=== PATIENT | female | born 1980 | race American Indian/Alaskan Native ===

== ENCOUNTER → 2021-07-14 11:09 | Outpatient (BNVA) | payer OTHER, SELFPAY | PROVIDERS: Visit Provider Family Medicine | DX: E66.01 Morbid (severe) obesity due to excess calories (principal); F31.9 Bipolar disorder, unspecified; I25.10 Atherosclerotic heart disease of native coronary artery without angina pectoris; Z68.41 Body mass index [BMI] 40.0-44.9, adult; N92.0 Excessive and frequent menstruation with regular cycle; L65.9 Nonscarring hair loss, unspecified; Z76.89 Persons encountering health services in other specified circumstances | CPT/HCPCS: 80053; 80061; 84443; 84481; 85025 ==

== ENCOUNTER → 2021-10-12 08:35 | Outpatient (BNVA) | payer OTHER, SELFPAY | PROVIDERS: PCP Family Medicine; Visit Provider Family Medicine | DX: N92.0 Excessive and frequent menstruation with regular cycle (principal); G47.61 Periodic limb movement disorder; F31.9 Bipolar disorder, unspecified; Z12.31 Encounter for screening mammogram for malignant neoplasm of breast; F41.8 Other specified anxiety disorders; Z12.4 Encounter for screening for malignant neoplasm of cervix | CPT/HCPCS: 87624 ==

== ENCOUNTER 2021-12-08 15:36 | Outpatient (CLI) | payer OTHER, SELFPAY ==
--- NOTE | 2021-12-08 15:47 | XR_ITS ---
WS: [id number] Exam: XR lumbar spine 2-3V* [id number] Date/Time of Exam: 12/08/2021 3:48 PM Reason For Exam: Low back and Left hip pain No acute fracture or dislocation. Degenerative disc changes at L1-2 and L2-3 with mild spondylosis. T here is levoscoliosis of the lower thoracic and upper lumbar spine. Posterior elements are otherwise intact. XR/XR lumbar spine 2-3V* [id number] IMPRESSION: 1. No fracture or dislocation. 2. Thoracolumbar levoscoliosis. Degenerative changes as above.
--- NOTE | 2021-12-08 15:47 | XR_ITS ---
WS: [id number] Exam: XR hip RT 2-3V wo/w pel* [id number] Date/Time of Exam: 12/08/2021 3:48 PM Reason For Exam: Right hip pain, H/O OA R hip No fracture or dislocation. The joint compartments well maintained. Normal soft tissues. XR/XR hip RT 2-3V wo/w pel* [id number] IMPRESSION: 1. Negative right hip.
== END 2021-12-08 15:37 | disposition home or self-care (01) ==
PROVIDERS: PCP Family Medicine; Visit Provider Family Medicine
DX: M25.551 Pain in right hip (principal); M41.85 Other forms of scoliosis, thoracolumbar region; M54.16 Radiculopathy, lumbar region
CPT/HCPCS: 72100; 73502

== ENCOUNTER → 2022-12-18 16:28 | Outpatient (BNVA) | payer OTHER, SELFPAY | PROVIDERS: PCP Family Medicine; Visit Provider Family Medicine | DX: E11.9 Type 2 diabetes mellitus without complications (principal); E66.01 Morbid (severe) obesity due to excess calories; I25.10 Atherosclerotic heart disease of native coronary artery without angina pectoris; N92.0 Excessive and frequent menstruation with regular cycle; Z68.41 Body mass index [BMI] 40.0-44.9, adult | CPT/HCPCS: 80053; 80061; 83036; 84439; 84443; 85025 ==

== ENCOUNTER → 2023-04-22 13:47 | Outpatient (BNVA) | payer OTHER, SELFPAY | PROVIDERS: PCP Family Medicine; Visit Provider Family Medicine | DX: R53.83 Other fatigue (principal); G25.81 Restless legs syndrome; E11.9 Type 2 diabetes mellitus without complications; D22.9 Melanocytic nevi, unspecified; R23.3 Spontaneous ecchymoses; Z86.69 Personal history of other diseases of the nervous system and sense organs; R06.81 Apnea, not elsewhere classified; F31.9 Bipolar disorder, unspecified; F41.8 Other specified anxiety disorders; D64.9 Anemia, unspecified | CPT/HCPCS: 80053; 82306; 82607; 82728; 83036 ==

== ENCOUNTER 2023-05-17 08:33 | Outpatient (CLI) | payer OTHER, SELFPAY ==
--- NOTE | 2023-05-17 08:43 | MM_ITS ---
WS: [id number] BILATERAL SCREENING DIGITAL TOMOSYNTHESIS MAMMOGRAM WITH CAD HISTORY: SCREENING COMPARISON: None available. Bilateral CC and MLO views with tomosynthesis and synthetic mammography submitted. Computer aided det ection analyzed. Breast composition: There are scattered areas of fibroglandular density. No suspicious masses, microc alcifications or architectural distortion. IMPRESSION: MM/[place] [id number] BI-RADS: 1-Negative FOLLOW UP: 1 Year Follow-up
== END 2023-05-17 08:34 | disposition home or self-care (01) ==
PROVIDERS: PCP Family Medicine; Visit Provider Family Medicine
DX: Z12.31 Encounter for screening mammogram for malignant neoplasm of breast (principal)
CPT/HCPCS: 77063; 77067; 80053; 82306; 82607; 82728; 83036

== ENCOUNTER → 2023-06-12 07:43 | Outpatient (BNVA) | payer OTHER, SELFPAY | PROVIDERS: PCP Family Medicine; Visit Provider Family Medicine | DX: N93.8 Other specified abnormal uterine and vaginal bleeding (principal); N81.6 Rectocele; R39.9 Unspecified symptoms and signs involving the genitourinary system; G25.81 Restless legs syndrome | CPT/HCPCS: 81000 ==

== ENCOUNTER 2023-07-04 12:34 | Outpatient (CLI) | payer OTHER, SELFPAY ==
--- NOTE | 2023-07-04 12:45 | US_ITS ---
WS: [id number] US pelv w/transvag [id number] HISTORY: prolonged periods, concern for fibroid COMPARISON: None available. Uterus: 11.8 cm x 7.0 cm x 5.5 cm. Mildly enlarged uterus. Hyperechoic area along the anterior myomet rium measures 2.3 x 1.6 x 1.8 cm. There is an additional hypoechoic area along the posterior endometr ium measuring 1.2 x 1.3 x 0.9 cm. Endometrium: 1.3 cm. Normal size. Right ovary: 4.7 cm x 4.5 cm x 5.4 cm. RIGHT ovary is enlarged. Ovary is slightly and diffusely hypoe choic. There is normal vascularity. There is a small amount of adjacent free fluid. Left ovary: 2.2 cm x 2.6 cm x 1.3 cm. Normal size and vascularity, no cystic or solid masses. Small amount of free fluid in the RIGHT adnexa. IMPRESSION: 1. Normal endometrium. 2. Hyperechoic area in the anterior myometrium and a very small hypoechoic area along the posterior m yometrium. These may be fibroids. The hyperechoic area may be an area of adenomyosis. 3. RIGHT ovary is very slightly enlarged. Due to the ovarian enlargement consider follow-up transvagi nal pelvic ultrasound in 3 to 4 months.
== END 2023-07-04 12:35 | disposition home or self-care (01) ==
PROVIDERS: PCP Family Medicine; Visit Provider Family Medicine
DX: N93.8 Other specified abnormal uterine and vaginal bleeding (principal)
CPT/HCPCS: 76830; 76856

== ENCOUNTER 2023-07-10 21:44 | Emergency (ER) | payer OTHER, SELFPAY ==
[2023-07-10 21:47] VITALS: BP 161/95; PULSE 88; RESP 16; TEMP 36.6; O2SAT 96; BMI 48.6
[2023-07-10 22:16] LABS: Basophils % 0.3 %; Eosinophils # 0.2 10^3/uL (0.0-0.8); Hematocrit 40.5 % (36-47); Lymphocytes # 3.5 10^3/uL (0.8-4.8); Lymphocytes % 36.3 %; Mean Corpuscular HGB Conc 32.8 g/dL (30-55); Mean Corpuscular Hemoglobin 30.1 pg (27-33); Mean Corpuscular Volume 91.6 fl (85-98); Mean Platelet Volume 8.7 fL (7.4-10.4); Monocytes # 0.5 10^3/uL (0.2-0.9); Monocytes % 5.4 %; Neutrophils # 5.35 10^3/uL (1.8-7.7); Neutrophils % 55.9 %; Nucleated Red Blood Cells % 0 %; Platelet Count 292 10^3/cmm (157-399); Red Blood Count 4.42 10^6/uL (3.85-5.65); Red Cell Distribution Width 12.8 % (12.1-15.1); White Blood Count 9.58 10^3/uL (3.29-11.43)
[2023-07-10 22:37] LABS: Alanine Aminotransferase 19 U/L (0-33); Albumin Level 4.1 g/dL (3.5-5.2); Alkaline Phosphatase 78 U/L (35-105); Anion Gap 12.1 (5-19); Aspartate Amino Transferase 16 U/L (0-32); Blood Urea Nitrogen 11 mg/dL (6-20); Calcium 9.4 mg/dL (8.5-10.5); Carbon Dioxide 28 mmol/L (22-29); Chloride 103 mmol/L (98-107); Globulin 2.7 g/dL (1.3-4.6); Glomerular Filtration Rate 109.1 mL/min (90-130); Glucose 174 mg/dL (65-115); Osmolality Calculated 292 mOsm/kg (285-295); Potassium 4.1 mmol/L (3.5-5.1); Sodium 139 mmol/L (136-145); Total Bilirubin 0.2 mg/dL (0.15-1.2); Total Protein 6.8 g/dL (6.6-8.7)
--- NOTE | 2023-07-10 23:14 | PC.NURSE ---
pt placed in gown
[2023-07-10 23:15] VITALS: BP 129/78; PULSE 70; RESP 19; O2SAT 97
--- NOTE | 2023-07-11 00:56 | W.ED.ABDPA2 ---
HPI - Abdominal Pain General: Chief Complaint: Abdominal Pain Stated Complaint: abdomen pain, nausea, vaginal bleeding Time Seen by Provider: 07/10/23 22:54 Source: patient Mode of arrival: ambulatory Limitations: no limitations History of Present Illness: Patient presents to the emergency department today accompanied by her for evaluation treatment of continued dysfunctional uterine bleeding. Patient has been dealing with this off and on for some time and her primary care doctor evaluated her approximately 1 week ago for similar. Patient received an ultrasound with positive findings of fibroid and, patient has complaints concerning a rectocele. Patient has a referral to [facility] in [place] with Dr. Hahn but is not until September. Patient reports that last night she noticed an increase in her vaginal bleeding. She is having severe abdominal cramps. She states she has been taking Midol and ibuprofen for her symptoms. Patient has felt a little dizzy but has not had any syncope, chest pains, or shortness of breath. Review of Systems General: Reports: 10 or more systems reviewed and unremarkable except in HPI and below PFSH ED PFSH: Medical History Degenerative joint disease (DJD) of lumbar spine History of obstructive sleep apnea Morbid obesity with BMI of 40.0-44.9, adult Restless leg Type 2 diabetes mellitus without complications Surgical History History of appendectomy Family History Grandfather CAD (coronary artery disease) Grandmother Diabetes Social History Smoking and tobacco/nicotine status: never used tobacco/nicotine Alcohol intake: current Alcohol intake frequency: holidays/special occasions only Substance/Drug Use: never Household members: spouse Marital status: Number of children: 1 Number of grandchildren: 0 Current occupational status: employed Current occupation: [employer] Special candido needs: No Agree to transfusion: Yes Physical Exam Const: COMMON NORMALS: no acute distress, patient oriented x3 and alert HENMT: COMMON NORMALS: normocephalic, atraumatic, hearing grossly normal bilaterally and moist oral mucous membranes HEAD & SCALP: normocephalic and atraumatic Eye: COMMON NORMALS: Equal, round and reactive pupils present, EOMs intact bilaterally and conjunctivae normal CONJUNCTIVA: Yes conjunctivae normal PUPIL: Yes Equal, round and reactive pupils present Neck/C-Spine: COMMON NORMALS: full ROM and no JVD Lymph: LYMPHATIC: no lymphadenopathy noted Resp: COMMON NORMALS: normal respiratory effort, No retractions, No use of accessory muscles and clear to auscultation bilaterally AUSCULTATION: clear to auscultation bilaterally Cardio: COMMON NORMALS: no JVD, regular rate and regular rhythm RATE: regular rate RHYTHM: regular rhythm GI: OTHER: Abdomen is soft. Normoactive bowel sounds. : COMMON NORMALS: Yes no CVA tenderness BLADDER/KIDNEY EXAM: Yes no CVA tenderness Back/Pelvis: COMMON NORMALS: no CVA tenderness, no thoracic nor lumbar tenderness and thoraco-lumbar ROM normal Extremity: COMMON NORMALS: normal to inspection, full ROM and capillary refill normal Neuro: COMMON NORMALS: patient oriented x3 SENSORIUM/ORIENTATION: Yes alert Psych: COMMON NORMALS: mental status grossly normal, Normal thought process present, cooperative, normal affect and activity/motor behavior normal THOUGHT PROCESS: Normal thought process present Skin: COMMON NORMALS: no rashes or lesions noted and no wounds GENERAL SKIN EXAM: no rashes or lesions noted Course Vital Signs: Vital signs: Vital Signs Temperature 97.9 F 07/10/23 21:47 Pulse Rate 70 07/10/23 23:15 Respiratory Rate 19 H 07/10/23 23:15 Blood Pressure 129/78 07/10/23 23:15 Pulse Oximetry 97 07/10/23 23:15 Oxygen Delivery Me thod Room Air 07/10/23 23:15 MDM - Abdominal Pain Medical Decision Making Lab work shows no signs of an elevated white blood cell count at this time. Patient's hemoglobin and hematocrit are both stable. We originally discussed having a repeat ultrasound done given the patient's complaint of acute worsening of bleeding last night. However, after getting the patient's lab work back, explained to her that she does not show any signs of anemia from blood loss and, as she just had an ultrasound about 5 days ago, would expect the same findings of fibroids. Patient agreed and wished to forego the repeat ultrasound today. We discussed treatment for her acute worsening of vaginal bleeding however, patient does not want to take any hormones at this time as she is concerned about their effect on her mood. Again, given that the patient has stable hemoglobin, I was willing to allow her to continue monitoring at home for the next day or 2 with strict return precautions for any worsening dizziness, new onset syncope, chest pain, or shortness of breath. Explained that if these were to occur we would need to discuss possible hormone intervention to stop her vaginal bleeding should it not spontaneously resolve on its own very soon. Patient was provided medication to help with her menstrual cramping. Patient was also encouraged to reach out to Dr. Hahn's office tomorrow to be placed on a first available list for any cancellations to see if she can have her appointment moved up. Patient verbalized understanding and agreement to treatment plan. Differential Diagnosis Likely abdominal pain; Unlikely acute appendicitis, diverticulitis, gastroenteritis, pancreatitis or small bowel obstruction Lab Data 07/10/23 22:11 07/10/23 22:11 Labs/Radiology: Laboratory Results WBC 9.58 10^3/uL (3.29-11.43) 07/10/23: RBC 4.42 10^6/uL (3.85-5.65) 07/10/23 22:11 Hgb 13.30 g/dL (11.27-16.99) 07/10/23 22:11 Hct 40.5 % (36-47) 07/10/23 22:11 MCV 91.6 fl (85-98) 07/10/23 22:11 MCH 30.1 pg (27-33) 07/10/23 22:11 MCHC 32.8 g/dL (30-55) 07/10/23 22:11 RDW 12.8 % (12.1-15.1) 07/10/23 22:11 Plt Count 292 10^3/cmm (157-399) 07/10/23 22:11 MPV 8.7 fL (7.4-10.4) 07/10/23 22:11 Neut % (Auto) 55.9 % 07/10/23: Lymph % (Auto) 36.3 % 07/10/23 22:11 [place] % (Auto) 5.4 % 07/10/23 22: Eos % (Auto) 2.0 % 07/10/23: Baso % (Auto) 0.3 % 10/25/23 22:11 Neut # (Auto) 5.35 10^3/uL (1.8-7.7) 07/10/23 22:11 Lymph # (Auto) 3.5 10^3/uL (0.8-4.8) 07/10/23 22:11 [place] # (Auto) 0.5 10^3/uL (0.2-0.9) 07/10/23 22:11 Eos # (Auto) 0.2 10^3/uL (0.0-0.8) 07/10/23 22:11 Baso # (Auto) 0.0 10^3/uL (0.0-0.1) 07/10/23 22:11 Nucleated RBC % (auto) 0 % 07/10/23 22:11 Nucleated RBCs # 0.0 /100WBC 07/10/23 22:11 Sodium 139 mmol/L (136-145) 07/10/23 22:11 Potassium 4.1 mmol/L (3.5-5.1) 07/10/23 22:11 Chloride 103 mmol/L (98-107) 07/10/23 22:11 Carbon Dioxide 28 mmol/L (22-29) 07/10/23 22:11 Anion Gap 12.1 (5-19) 07/10/23 22:11 BUN 11 mg/dL (6-20) 07/10/23 22:11 Creatinine 0.6 mg/dL (0.5-0.9) 07/10/23 22:11 GFR Calculation 109.1 mL/min (90-130) 07/10/23 22:11 Glucose 174 mg/dL (65-115) H 07/10/23 22:11 Calculated Osmolality 292 mOsm/kg (285-295) 07/10/23 22:11 Calcium 9.4 mg/dL (8.5-10.5) 07/10/23 22:11 Total Bilirubin 0.2 mg/dL (0.15-1.2) 07/10/23 22:11 AST 16 U/L (0-32) 07/10/23 22:11 ALT 19 U/L (0-33) 07/10/23 22:11 Alkaline Phosphatase 78 U/L (35-105) 07/10/23 22:11 Total Protein 6.8 g/dL (6.6-8.7) 07/10/23 22:11 Albumin 4.1 g/dL (3.5-5.2) 07/10/23 22:11 Globulin 2.7 g/dL (1.3-4.6) 07/10/23 22:11 No radiology studies performed this visit Discharge Plan Discharge Patient Disposition: Home Clinical Impression: Dysfunctional uterine bleeding Condition: Stable Prescriptions: No Action bupropion HCl 150 mg tablet extended release 24 hr 150 mg PO QAM Qty: 30 5RF desvenlafaxine succinate 100 mg tablet extended release 24 hr See Rx Instructions .ROUTE .COMPLEX Qty: 30 5RF Dose Instruction: TAKE ONE TABLET BY MOUTH EVERY DAY Rx Instructions: TAKE ONE TABLET BY MOUTH EVERY DAY ropinirole 0.25 mg tablet 0.25 mg PO DAILY Qty: 30 0RF Discharge Orders: Discharge ED (Routine); Ordered 07/11/23 Ordered By: Barb Wallis Referrals: Neida Almazan MD [Primary Care Provider] - Discharge Diet: Usual diet Discharge Activity: Increase activity as tolerated Patient Instructions: Fibroids Activity Restrictions/Additional Instructions: At this time, your lab work is unremarkable. No signs of elevated white blood cell count and, no signs of acute anemia from blood loss. However, as we discussed, if you continue to have bleeding that leads to more consistent dizziness, intense fatigue, passing out-you need to return back to the emergency department to discuss treatment options. It does appear that your doctor has referred you to Dr. Hahn in [place]. I recommend calling their office first thing in the morning to request being on a first available list should there be any cancellations between now and your appointment in September. Still, if you have any acute worsening of symptoms you need to be seen here in the emergency department. Coding Level of Care Code ED Staff Development Coordinator for Shani Pop
[2023-07-11 01:16] VITALS: BP 129/78; PULSE 70; RESP 19; O2SAT 97
== END 2023-07-11 01:23 | disposition home or self-care (01) ==
PROVIDERS: Emergency Medicine; Emergency Provider Physician Assistant; PCP Family Medicine
DX: N93.8 Other specified abnormal uterine and vaginal bleeding (principal); E11.9 Type 2 diabetes mellitus without complications
CPT/HCPCS: 36415; 80053; 85025; 99283

== ENCOUNTER → 2023-10-24 10:34 | Outpatient (BNVA) | payer OTHER, SELFPAY | PROVIDERS: PCP Family Medicine; Visit Provider Clinical Nurse Specialist Adult Health | DX: J06.9 Acute upper respiratory infection, unspecified (principal); J02.9 Acute pharyngitis, unspecified | CPT/HCPCS: 87400; 87426; 87880 ==

== ENCOUNTER → 2023-11-13 12:08 | Outpatient (BNVA) | payer OTHER, SELFPAY | PROVIDERS: PCP Family Medicine; Visit Provider Family Medicine | DX: L50.9 Urticaria, unspecified (principal) | CPT/HCPCS: 80053; 84443; 85025 ==

== ENCOUNTER → 2024-02-18 07:36 | Outpatient (BNVA) | payer OTHER, SELFPAY | PROVIDERS: PCP Family Medicine; Visit Provider Family Medicine | DX: R63.5 Abnormal weight gain (principal); R53.83 Other fatigue; Z79.899 Other long term (current) drug therapy | CPT/HCPCS: 80053; 82306; 82533; 82607; 84443; 85025 ==

== ENCOUNTER 2024-03-25 10:48 | Outpatient (CLI) | payer OTHER, SELFPAY ==
--- NOTE | 2024-03-25 10:52 | XRR_ITS ---
PROCEDURE INFORMATION: Exam: XR Lumbosacral Spine Exam date and time: 03/25/2024 11:24 AM Age: 43 years old Clinical indication: Low back pain; Additional info: Worsening acute low back pain TECHNIQUE: Imaging protocol: Radiologic exam of the lumbosacral spine. Views: 2 or 3 views. COMPARISON: CR XR lumbar spine 2-3V* [id number] 12/08/2021 3:48 PM FINDINGS: Bones/joints: Stable levoscoliosis of the thoracolumbar spine. No evidence of a lumbosacral fracture. There is stable chronic degenerative disc space narrowing at L1-L2 and L2-L3. There has been slight progression of the chronic degenerative disc space narrowing at L5-S1 when compared to the prior study. Soft tissues: Unremarkable. XR/XR lumbar spine 2-3V* [id number] IMPRESSION: 1. No acute lumbosacral spine abnormality. 2. Stable chronic degenerative disc disease at L1-L2 and L2-L3. 3. Slight progression of the chronic degenerative disc disease at L5-S1.
== END 2024-03-25 10:49 | disposition home or self-care (01) ==
LOC: RAD 10:49
PROVIDERS: PCP Family Medicine; Visit Provider Family Medicine
DX: M51.36 Other intervertebral disc degeneration, lumbar region (principal); M51.37 Other intervertebral disc degeneration, lumbosacral region
CPT/HCPCS: 72100

== ENCOUNTER → 2024-08-20 14:46 | Outpatient (BNVA) | payer OTHER, SELFPAY | PROVIDERS: PCP Family Medicine; Visit Provider Family Medicine | DX: I10 Essential (primary) hypertension (principal); E11.9 Type 2 diabetes mellitus without complications; R53.83 Other fatigue | CPT/HCPCS: 80053; 80061; 82306; 82607; 83036; 84443; 85025 ==

== ENCOUNTER 2025-07-14 08:35 | Outpatient (CLI) | payer OTHER, SELFPAY ==
--- NOTE | 2025-07-14 08:43 | MM_ITS ---
WS: [id number] BILATERAL SCREENING DIGITAL TOMOSYNTHESIS MAMMOGRAM WITH CAD HISTORY: SCREENING COMPARISON: 05/17/2023 Bilateral CC and MLO views with tomosynthesis and synthetic mammography submitted. Computer aided detection analyzed. Breast composition: There are scattered areas of fibroglandular density. No suspicious masses, microcalcifications or architectural distortion. MM/MM scr BI tomosynthesis [id number] IMPRESSION: BI-RADS: 1 - Negative. FOLLOW UP: 1 Year Follow-up
== END 2025-07-14 08:36 | disposition home or self-care (01) ==
PROVIDERS: PCP Family Medicine; Visit Provider Family Medicine
DX: Z12.31 Encounter for screening mammogram for malignant neoplasm of breast (principal); R92.323 Mammographic fibroglandular density, bilateral breasts
CPT/HCPCS: 77063; 77067

== ENCOUNTER → 2025-07-28 11:52 | Outpatient (BNVA) | payer OTHER, SELFPAY | PROVIDERS: PCP Family Medicine; Visit Provider Family Medicine | DX: I10 Essential (primary) hypertension (principal); E11.9 Type 2 diabetes mellitus without complications; E66.01 Morbid (severe) obesity due to excess calories; Z68.41 Body mass index [BMI] 40.0-44.9, adult; G25.81 Restless legs syndrome; R79.89 Other specified abnormal findings of blood chemistry; D64.9 Anemia, unspecified; N93.8 Other specified abnormal uterine and vaginal bleeding; R53.83 Other fatigue | CPT/HCPCS: 80053; 80061; 82306; 82728; 83036; 84443 ==